=== PATIENT | female | born 1965 | race Caucasian/White ===

== ENCOUNTER 2023-09-21 10:23 | Emergency (ER) | payer OTHER ==
[~2023-09-21] VITALS: Ht 177.8 cm; Wt 90.7 kg
[2023-09-21] MEDS ORDERED: CEFTRIAXONE SODIUM 1,000 MG VIAL IM STA (11:06)
[2023-09-21] MEDS ORDERED: KETOROLAC TROMETHAMINE 30 MG VIAL IM STA (11:06)
[2023-09-21 12:04] LABS: HEMATOCRIT 38.6 % (36.0-45.00); HEMOGLOBIN 13.3 g/dL (12.0-15.00); MEAN CELL VOLUME 93.1 fL (80.00-100.00); MEAN CORPUSCULAR HEMOGLOBIN 32.2 pg (27.00-32.0); MEAN CORPUSCULAR HGB CONC 34.6 g/dl (32.0-36.0); PLATELET COUNT 287 K/uL (150-450); RED BLOOD COUNT 4.14 M/uL (4.00-6.00); RED CELL DISTRIBUTION WIDTH 13.7 % (11.5-14.5)
[2023-09-21 12:14] LABS: URINE APPEARANCE Clear; URINE BILIRRUBIN Negative (NEGATIVE); URINE BLOOD Large; URINE COLOR Yellow; URINE GLUCOSE Negative (NEGATIVE); URINE LEUKOCYTE Moderate; URINE NITRATE Negative; URINE PROTEIN Negative (NEGATIVE); URINE UROBILINOGEN 0.2 E.U./dl
[2023-09-21 12:18] LABS: URINE BACTERIA 1922.4 uL (0.0-1933); URINE EPITHELIAL CELLS 2.4 uL (0.0-38.8); URINE RBC 712.2 uL (0.0-20.8)
== END 2023-09-21 13:34 | disposition home or self-care (01) ==
LOC: ER 10:23
PROVIDERS: General Practice
DX: N30.90 Cystitis, unspecified without hematuria (principal); Z91.09 Other allergy status, other than to drugs and biological substances

== ENCOUNTER 2023-09-21 23:13 | Emergency (ER) | payer OTHER ==
[~2023-09-21] VITALS: Ht 172.7 cm; Wt 88.5 kg
[2023-09-22] MEDS ORDERED: RINGERS SOLUTION,LACTATED 1,000 ML IV STA (01:23)
[2023-09-22 02:23] LABS: HEMATOCRIT 36.6 % (36.0-45.00); HEMOGLOBIN 12.6 g/dL (12.0-15.00); MEAN CELL VOLUME 92.5 fL (80.00-100.00); MEAN CORPUSCULAR HEMOGLOBIN 31.8 pg (27.00-32.0); MEAN CORPUSCULAR HGB CONC 34.4 g/dl (32.0-36.0); PLATELET COUNT 268 K/uL (150-450); RED BLOOD COUNT 3.96 M/uL (4.00-6.00); RED CELL DISTRIBUTION WIDTH 13.1 % (11.5-14.5)
[2023-09-22 02:35] LABS: INR < 0.93; PROTHROMBIN TIME 9.7 SECONDS (9.0-11.5)
[2023-09-22 02:36] LABS: PARTIAL THROMBOPLASTIN TIME 33.6 SECONDS (22.0-34.0)
[2023-09-22 02:43] LABS: ALBUMIN 3.5 gm/dL (3.4-5.0); BILIRUBIN TOTAL 0.69 mg/dL (0.3-1.2); CALCIUM 8.9 mg/dL (8.5-10.1); GFR 115.55; GLOBULINA 3.4 G/DL (2.4-3.5); POTASSIUM 3.84 mEq/L (3.5-5.1); TOTAL PROTEIN 6.9 gm/dL (6.4-8.2)
[2023-09-22 02:47] LABS: CREATININE SERUM 0.54 mg/dL (0.55-1.02)
[2023-09-22 03:04] LABS: URINE APPEARANCE Clear; URINE BILIRRUBIN Negative (NEGATIVE); URINE BLOOD Negative; URINE COLOR Yellow; URINE GLUCOSE Negative (NEGATIVE); URINE LEUKOCYTE Small; URINE NITRATE Negative; URINE PROTEIN Negative (NEGATIVE); URINE UROBILINOGEN 0.2 E.U./dl
[2023-09-22 03:07] LABS: URINE EPITHELIAL CELLS 6.6 uL (0.0-38.8); URINE RBC 7.7 uL (0.0-20.8); URINE WBC 44.9 uL (0.0-23.2)
== END 2023-09-22 04:25 | disposition home or self-care (01) ==
LOC: ER 23:13
DX: S00.83XA Contusion of other part of head, initial encounter (principal); X58.XXXA Exposure to other specified factors, initial encounter; Y93.89 Activity, other specified; Y92.89 Other specified places as the place of occurrence of the external cause; Y99.8 Other external cause status; R55 Syncope and collapse; R42 Dizziness and giddiness; Z91.09 Other allergy status, other than to drugs and biological substances